=== PATIENT | male | born 1990 | race Asian ===

== ENCOUNTER → 2023-06-05 08:40 | Outpatient (CLI) | payer OTHER, MEDICAID, SELFPAY | PROVIDERS: Visit Provider Physician Assistant Medical | DX: R59.0 Localized enlarged lymph nodes (principal) | CPT/HCPCS: 87070 ==

== ENCOUNTER 2023-06-13 09:18 | Emergency (ER) | payer OTHER, MEDICAID, SELFPAY ==
[2023-06-13 09:28] VITALS: BP 178/107; PULSE 75; RESP 16; TEMP 36.6; O2SAT 99; BMI 34.8
--- NOTE | 2023-06-13 09:40 | ED_ITS ---
HPI - URI/Sore Throat General Chief Complaint: Upper Respiratory Symptoms Stated Complaint: sore throat, cough Time Seen by Provider: 06/13/23 09:20 History of Present Illness HPI Narrative: 32-year-old male with history of previous fentanyl use, currently on methadone presents by private vehicle from home for approximately 4 months of nonproductive cough and wheezing. Patient states that he quit smoking fentanyl on March 22, 2023. Prior to stopping smoking fentanyl he began to notice symptoms, but symptoms have continued though he stopped using 3 and half months ago. He went to the walk-in clinic last week, they swabbed his throat for strep. He was initially discharged on amoxicillin but he was then told that his strep culture was negative and he should stop taking amoxicillin. No other medications or therapies tried. Patient states he also uses a vape pen, but is trying to cut down Related Data Home Medications Medication Instructions Recorded Confirmed methadone 10 mg/mL oral concentrate 10 mg PO DAILY 06/05/23 06/05/23 Previous Rx's Medication Instructions Recorded amoxicillin 500 mg capsule 500 mg PO TID #30 caps 06/05/23 albuterol sulfate 90 mcg/actuation 2 puff inhalation QID PRN 06/13/23 aerosol inhaler shortness of breath or wheezing #8.5 grams prednisone 20 mg tablet 40 mg (2 x 20 mg) PO DAILY #10 tabs 06/13/23 Allergies Allergy/AdvReac Type Severity Reaction Status Date / Time No Known Drug Allergies Allergy Unverified 06/05/23 08:29 Review of Systems Review of Systems Narrative: Negative except as noted above Patient History Social History Smoking Status: Unknown if ever smoked Smoking Status: Unknown if ever smoked Substance Use Type: former substance user, marijuana and opiates Exam Initial Vital Signs Initial Vital Signs: Vital Signs Temperature 97.8 F 06/13/23 09:28 Pulse Rate 75 06/13/23 09:28 Respiratory Rate 16 06/13/23 09:28 Blood Pressure 178/107 H 06/13/23 09:28 Pulse Oximetry 99 06/13/23 09:28 Oxygen Delivery Method Room Air 06/13/23 09:28 Const: Awake, alert, no acute distress, nontoxic appearing Cardiac: regular rate, regular rhythm RESP: Speaking in complete sentences without dyspnea, expiratory wheezes upper and lower lung charles, no retractions GI: Soft, nontender, nondistended, no rebound, no guarding MSK: Atraumatic, full range of motion, pulses equal Skin: Warm, Dry, intact, no rashes Neuro: AO x3, CN II-XII grossly intact, moves all extremities Course Orders Ordered: ED Orders 06/13/23 09:39 Chest [XR chest 2V] Stat Discontinued Medications Albuterol/Ipratropium (Albuterol/Ipratropium 3 Ml Ampul) 9 ml INH NOW ONE Stop: 06/13/23 09:40 Last Admin: 06/13/23 10:02 Dose: 9 ml Documented By: DAI Dexamethasone (Dexamethasone 10 Mg/Ml Vial) 10 mg PO NOW ONE Stop: 06/13/23 09:40 Last Admin: 06/13/23 09:54 Dose: 10 mg Documented By: CYNTHIA Vital Signs Vital signs: Vital Signs - 8 hr 06/13/23 09:28 06/13/23 09:57 06/13/23 10:00 Temperature 97.8 F Pulse Rate 75 73 72 Respiratory Rate 16 Blood Pressure 178/107 H Pulse Oximetry 99 98 99 Oxygen Delivery Method Room Air Room Air Oxygen Flow Rate Fraction of Inspired Oxygen 06/13/23 10:00 06/13/23 10:25 06/13/23 10:30 Temperature Pulse Rate 76 88 Respiratory Rate 18 Blood Pressure 145/86 H Pulse Oximetry 97 95 Oxygen Delivery Method Room Air Oxygen Flow Rate 0 Fraction of Inspired Oxygen 21 MDM - URI/Sore Throat Differential Diagnosis Differential diagnosis: Likely upper respiratory infection, bronchitis and pharyngitis Imaging Data Chest x-ray: Radiologist's Impression: PROCEDURE: XR CHEST 2V INDICATIONS: COUGH/WHEEZE/HX FENTANYL SMOKING TECHNIQUE: 2 views of the chest were acquired. COMPARISON: None. FINDINGS: Surgical changes and devices: None. Lungs and pleura: Lungs are clear. No pleural effusions or pneumothorax. Mediastinum: Mediastinal contours are normal. Heart size is normal. Bones and chest wall: No suspicious bony abnormalities. Soft tissues appear unremarkable. IMPRESSION: No acute cardiopulmonary abnormality is seen. Dictated by: Harshil Simons M.D. on 06/13/2023 at 9:00 Approved by: Harshil Siomns M.D. on 06/13/2023 at 9:00 [facility] Narrative Medical decision making narrative: Well-appearing patient with longstanding multiple months of cough and wheezing. Patient does report that he previously would regularly smoked fentanyl, question if this is related to patient's symptoms. He denies a history of lung disease as a child including asthma. He was saturating well on room air, speaking in complete sentences without dyspnea, but does have expiratory wheezes on lung exam. We will give Decadron, DuoNebs, and order a chest x-ray. Chest x-ray shows no acute cardiopulmonary process. Wheezing is still present after DuoNebs, but decreased and patient has good air movement. He states that he still feels like there is a little bit of wheezing present but does report improvement. Patient advised of x-ray results, recommended several days of continued steroids as well as an albuterol inhaler. Patient is strongly advised to follow up with primary care physician for further investigation of his new shortness of breath and wheezing. Discharge Plan Departure Patient Disposition: Home Clinical Impression: Expiratory wheezing Instructions: How to Use a Metered-Dose Inhaler, DI for Reactive Airway Disease-Adult Activity Restrictions/Additional Instructions: Take the steroids as prescribed and use the inhaler as needed for shortness of breath or wheezing. Is extremely important that you follow up with a primary care physician for further management of your wheezing. Your chest X ray was normal today without any masses or pneumonia Prescriptions: New prednisone 20 mg tablet 40 mg PO DAILY Qty: 10 0RF albuterol sulfate 90 mcg/actuation HFA aerosol inhaler 2 puff inhalation QID PRN (Reason: shortness of breath or wheezing) Qty: 8.5 0RF No Action methadone 10 mg/mL concentrate 10 mg PO DAILY amoxicillin 500 mg capsule 500 mg PO TID Qty: 30 0RF Referrals: Miscellaneous,Doctor, [Primary Care Provider] - Stand Alone Forms: Patient Portal/API, Work Release Note
[2023-06-13] MEDS: DEXAMETHASONE 10 MG/ML VIAL PO (09:54)
[2023-06-13 09:57] VITALS: PULSE 73; O2SAT 98
[2023-06-13 10:00] VITALS: BP 145/86; PULSE 72; O2SAT 99
[2023-06-13] MEDS: ALBUTEROL/IPRATROPIUM 3 ML AMPUL 9 ML INH (10:02)
[2023-06-13 10:25] VITALS: PULSE 76; RESP 18; O2SAT 97
[2023-06-13 10:30] VITALS: PULSE 88; O2SAT 95
== END 2023-06-13 10:45 | disposition home or self-care (01) ==
PROVIDERS: Emergency Provider Emergency Medicine
DX: R06.2 Wheezing (principal)
CPT/HCPCS: 71046; 94640; 99283; 99284; J1100

== ENCOUNTER 2023-08-28 01:51 | Emergency (ER) | payer OTHER, MEDICAID, SELFPAY ==
[2023-08-28] MEDS: KETOROLAC 30 MG/ML VIAL 15 MG IV (02:27)
--- NOTE | 2023-08-28 02:28 | DI.RAD.S_ITS ---
PROCEDURE: XR CHEST 1V INDICATIONS: CHEST PAIN TECHNIQUE: One view of the chest was acquired. COMPARISON: [facility], CR, XR CHEST 2V, 06/13/2023, 9:39. FINDINGS: Surgical changes and devices: None. Lungs and pleura: An incomplete inspiratory result is noted, causing a crowded appearance to the lung markings. No focal infiltrates are seen. No pneumothorax or significant pleural effusions are seen. Mediastinum: Mediastinal contours appear normal. Heart size is normal. Bones and chest wall: No suspicious bony lesions. Overlying soft tissues appear unremarkable. IMPRESSION: Low lung volumes, without an acute abnormality seen by plain film. Note: No significant discrepancy from the preliminary report. Dictated by: Kodak Kinney M.D. on 08/28/2023 at 8:16 Approved by: Kodak Kinney M.D. on 08/28/2023 at 8:17
--- NOTE | 2023-08-28 17:24 | PC.NURSE ---
[facility] downtime 08/27/23 ~1999 start - see paper documentation
[2023-08-28 18:09] LABS: Alanine Aminotransferase 57 IU/L (<50); Albumin 4.7 g/dL (3.5-5.0); Albumin Globulin Ratio 1.4 (1.0-2.8); Alkaline Phosphatase 99 U/L (38-126); Aspartate Aminotransferase 45 IU/L (17-59); BUN Creatinine Ratio 19.3 (6-22); Bilirubin Total 0.5 mg/dL (0.2-1.3); Blood Urea Nitrogen 16 mg/dL (9-20); Calcium 9.6 mg/dL (8.4-10.2); Carbon Dioxide 28 mmol/L (22-32); Chloride 105 mmol/L (98-107); Estimated Glomerular Filt Rate > 60 mL/min (>60); Globulin 3.3 g/dL (1.7-4.1); Glucose 115 mg/dL (70-100); HEMOLYSIS < 15 (0-50); Potassium 3.8 mmol/L (3.4-5.1); Sodium 139 mmol/L (137-145); Troponin I < 0.012 ng/mL (0.01-0.034)
[2023-08-28 18:11] LABS: D Dimer 363 ng/ml (<500)
[2023-08-28 21:18] LABS: Add Manual Diff / Slide Review NO; Basophils Absolute Auto 0 /uL (0-100); Basophils Percent Auto 0.3 % (0-2); Eosinophils Absolute Auto 100 /uL (0-450); Eosinophils Percent Auto 2.5 % (2-4); Hematocrit 39.7 % (41-53); Hemoglobin 13.6 g/dL (13.5-17.5); Lymphocytes Absolute Auto 1800 /uL (1100-4500); Lymphocytes Percent Auto 29.5 % (25-40); Mean Corpuscular HGB Conc 34.2 % (30-36); Mean Corpuscular Hemoglobin 28.2 PG (26-34); Mean Corpuscular Volume 82.5 fL (80-100); Monocytes Absolute Auto 600 /uL (0-900); Monocytes Percent Auto 10.3 % (3-14); Neutrophils Absolute Auto 3400 /uL (1500-7000); Neutrophils Percent Auto 57.4 % (50-75); Platelet Count 332 X10^3/uL (150-400); Red Blood Cell Count 4.81 X10^6/uL (4.5-5.9); Red Cell Distribution Width 13.4 % (11.6-14.8)
== END 2023-08-28 03:40 | disposition home or self-care (01) ==
LOC: ED 12:17
PROVIDERS: Emergency Provider Emergency Medicine
DX: R07.9 Chest pain, unspecified (principal); R00.0 Tachycardia, unspecified
CPT/HCPCS: 71045; 80053; 84484; 85025; 85379; 93005; 93010; 96374; 99283; 99284; J1885